=== PATIENT | female | born 2000 | race Caucasian/White ===

== ENCOUNTER → 2019-12-14 16:31 | Outpatient (BNVA) | payer BC, SELFPAY | PROVIDERS: Family Provider Family Medicine; Visit Provider Nurse Practitioner Women's Health | DX: Z01.419 Encounter for gynecological examination (general) (routine) without abnormal findings (principal); Z30.46 Encounter for surveillance of implantable subdermal contraceptive | CPT/HCPCS: 88175 ==

== ENCOUNTER → 2024-04-07 15:41 | Outpatient (BNVA) | payer OTHER, SELFPAY | PROVIDERS: Family Provider Family Medicine; Visit Provider Nurse Practitioner Women's Health | DX: Z12.4 Encounter for screening for malignant neoplasm of cervix (principal); N92.6 Irregular menstruation, unspecified | CPT/HCPCS: 81025; 87624 ==

== ENCOUNTER → 2024-05-04 14:27 | Outpatient (BNVA) | payer OTHER, SELFPAY | PROVIDERS: Family Provider Family Medicine; Visit Provider Nurse Practitioner Women's Health | DX: Z32.01 Encounter for pregnancy test, result positive (principal); N91.2 Amenorrhea, unspecified | CPT/HCPCS: 81025; 84702; 86850; 86900 ==

== ENCOUNTER → 2024-05-17 12:30 | Outpatient (BNVA) | payer OTHER, SELFPAY | PROVIDERS: Family Provider Family Medicine; Visit Provider Nurse Practitioner Women's Health | DX: Z36.87 Encounter for antenatal screening for uncertain dates (principal); Z3A.09 9 weeks gestation of pregnancy | CPT/HCPCS: 76801; 80307; 81000; 84443; 85025; 86592; 86762; 86803; 86850; 86900; 87086; 87340; 87806 ==

== ENCOUNTER → 2024-07-04 14:00 | Outpatient (BNVA) | payer OTHER, SELFPAY | PROVIDERS: Family Provider Family Medicine; Visit Provider Nurse Practitioner Women's Health | DX: Z34.01 Encounter for supervision of normal first pregnancy, first trimester (principal) | CPT/HCPCS: 82105; 84315; 87086 ==

== ENCOUNTER → 2024-08-01 14:38 | Outpatient (BNVA) | payer OTHER, SELFPAY | PROVIDERS: Family Provider Family Medicine; Visit Provider Obstetrics & Gynecology | DX: Z34.02 Encounter for supervision of normal first pregnancy, second trimester (principal); Z3A.20 20 weeks gestation of pregnancy | CPT/HCPCS: 76805 ==

== ENCOUNTER → 2024-08-09 14:36 | Outpatient (BNVA) | payer OTHER, SELFPAY | PROVIDERS: Family Provider Family Medicine; Visit Provider Obstetrics & Gynecology | DX: Z34.01 Encounter for supervision of normal first pregnancy, first trimester (principal) | CPT/HCPCS: 84315 ==

== ENCOUNTER → 2024-09-23 14:36 | Outpatient (BNVA) | payer OTHER, SELFPAY | PROVIDERS: Family Provider Family Medicine; Visit Provider Obstetrics & Gynecology | DX: Z34.90 Encounter for supervision of normal pregnancy, unspecified, unspecified trimester (principal) | CPT/HCPCS: 82950; 84315; 85025 ==

== ENCOUNTER → 2024-10-05 15:36 | Outpatient (BNVA) | payer OTHER, SELFPAY | PROVIDERS: Family Provider Family Medicine; Visit Provider Nurse Practitioner Women's Health | DX: O35.9XX0 Maternal care for (suspected) fetal abnormality and damage, unspecified, not applicable or unspecified (principal); Z3A.30 30 weeks gestation of pregnancy | CPT/HCPCS: 76816 ==

== ENCOUNTER → 2024-10-07 14:30 | Outpatient (BNVA) | payer OTHER, SELFPAY | PROVIDERS: Family Provider Family Medicine; Visit Provider Obstetrics & Gynecology | DX: Z34.93 Encounter for supervision of normal pregnancy, unspecified, third trimester (principal) | CPT/HCPCS: 84315 ==

== ENCOUNTER → 2024-10-21 14:55 | Outpatient (BNVA) | payer OTHER, SELFPAY | PROVIDERS: Family Provider Family Medicine; Visit Provider Obstetrics & Gynecology | DX: Z34.90 Encounter for supervision of normal pregnancy, unspecified, unspecified trimester (principal) | CPT/HCPCS: 84315 ==

== ENCOUNTER → 2024-11-03 14:15 | Outpatient (BNVA) | payer OTHER, SELFPAY | PROVIDERS: Family Provider Family Medicine; Visit Provider Nurse Practitioner Women's Health | DX: Z34.01 Encounter for supervision of normal first pregnancy, first trimester (principal) | CPT/HCPCS: 84315 ==

== ENCOUNTER → 2024-11-23 15:47 | Outpatient (BNVA) | payer OTHER, SELFPAY | PROVIDERS: Family Provider Family Medicine; Visit Provider Obstetrics & Gynecology | DX: Z34.80 Encounter for supervision of other normal pregnancy, unspecified trimester (principal) | CPT/HCPCS: 84315; 87081 ==

== ENCOUNTER → 2024-12-01 14:35 | Outpatient (BNVA) | payer OTHER, SELFPAY | PROVIDERS: Family Provider Family Medicine; Visit Provider Obstetrics & Gynecology | DX: Z34.90 Encounter for supervision of normal pregnancy, unspecified, unspecified trimester (principal) | CPT/HCPCS: 84315 ==

== ENCOUNTER → 2024-12-08 14:46 | Outpatient (BNVA) | payer OTHER, SELFPAY | PROVIDERS: Family Provider Family Medicine; Visit Provider Obstetrics & Gynecology | DX: Z34.01 Encounter for supervision of normal first pregnancy, first trimester (principal) | CPT/HCPCS: 84315 ==

== ENCOUNTER → 2024-12-15 14:30 | Outpatient (BNVA) | payer OTHER, SELFPAY | PROVIDERS: Family Provider Family Medicine; Visit Provider Obstetrics & Gynecology | DX: Z34.90 Encounter for supervision of normal pregnancy, unspecified, unspecified trimester (principal) | CPT/HCPCS: 84315 ==

== ENCOUNTER 2024-12-19 20:38 | Inpatient (IN) | payer OTHER, SELFPAY ==
[2024-12-19] VITALS (8 sets, daily range): BP systolic 103–131; BP diastolic 68–79; PULSE 76–110; BMI 30.2
--- NOTE | 2024-12-19 21:40 | P.HP_ITS ---
Providers/Chief Complaint 2 Admitting Physician: Wilver Lopez MD Primary SUPERVISOR BUILDING MAINTENANCE: Wilver Lopez MD Chief Complaint: IOL HPI SUPERVISOR BUILDING MAINTENANCE History of Present Illness Lex Casanova is a 24 year old female EDC December 15, 2024 At 40 w 4 d No complications Admitted for induction of labor No c/o + active movements Present Details : 1 Para: 0 Labs Rubella: Immune RPR: Negative GBS: Negative Medications/Allergies Home Medications ?Medication ?Instructions ?Recorded ?Confirmed ?Last Taken ?Type PNV 153-FA 400 mcg-om3 35 mg-dha 1 tab PO DAILY 12/19/24 12/18/24 History 25 mg-epa 5 mg-fish oil chew tablet ( Gummies) Allergies Allergy/AdvReac Type Severity Reaction Status Date / Time No Known Allergies Allergy Verified 12/15/24 14:37 PFSH SUPERVISOR BUILDING MAINTENANCE 2 PFSH: Medical History Encounter for contraceptive management Surgical History No pertinent past surgical history Family History Father Hypertension Denies family history of Colon cancer Ovarian cancer Dementia Heart disease Hyperlipidemia Breast cancer Family history of thyroid problem Uterine cancer Stroke Social History Smoking and tobacco/nicotine status: never used tobacco/nicotine Alcohol intake: never Substance/Drug Use: never History History History 2 1 Term 0 0 Miscarriages/Ectopic 0 Living Children 0 Care ADRIANA Calculator 2 Estimated Delivery Date Method Current WG Current Estimate 12/15/24 LMP (Certain) 40w 6d Other Estimates 12/18/24 Ultrasound #1 40w 3d Specific Issues/Plans * * UTI IN : augmentin sent for treatment of UTI, urine culture positive for e. coli, repeat culture ordered 07/04/24 negative Vitals/I&O/Wt Last Vital Signs Temp 96.6 F L 12/20/24 20:05 Pulse 80 12/21/24 08:54 BP 116/74 12/21/24 08:54 Pulse Ox 98 12/21/24 01:57 O2 Del Method Room Air 12/21/24 02:50 12/20/24 12/21/24 12/21/24 22:59 06:59 14:59 Intake Total 799.167 / 1380.150 534.25 / 1914.400 979.167 / 979.167 Output Total 300 / 300 Balance 799.167 / 1380.150 234.25 / 1614.400 979.167 / 979.167 Weight last 48 hrs Weight 176 lb Physical Exam 2 Narrative: Weight 176 lbs; 5?4? VS normal General comfortable, awake, alert Lungs: clear Cor RRR FH 38 cm, cephalic Cx closed / 25% / -3 / posterior / firm Ext: no edema External monitor: heart tracing good variability, + accelerations Urinary Catheter Management: Romero Latex: Cath Placed During This Visit: yes Reason for Continuing Indwelling Catheter: Other Urinary Catheter Date of Insertion: 12/21/24 Urinary Catheter Time of Insertion: 01:58 Data 12/19/24 21:00 Results Labs OB ([facility]): 2 Obstetrics US 10/05/24 Blood Type O Positive 12/19/24 Antibody Screen Negative 12/19/24 Hct, (36-47) 37.0 % 12/19/24 Hgb, (11.27-16.99) 12.90 g/dL 12/19/24 Rho(D) Type Rh positive 12/19/24 Plt Count, (157-399) 198 10^3/cmm 12/19/24 Hep Bs Antigen, (Nonreactive) Non-reactive 05/17/24 Hepatitis C Antibody, (Nonreactive) Non-reactive 05/03 12/24 Rubella IgG Antibody, (0.0-10.0) 153.5 IU/mL H 4 RPR, (Nonreactive) Nonreactive 05/17/24 HIV 1&2 Ab & HIV 1 Ag, (Non-Reactiv) Non-reactive TSH, (0.27-4.20) 0.61 uIU/mL 05/17/24 Glucose 1 Hr 50 gm, (85-140) 69 mg/dL L 09/23/24 Ser , Semi-Qnt 39335.00 mIU/mL 05/04/24 HCG, Qual, (Negative) Positive H 05/04/24 Urine Opiates Screen, (Negative) Negative ng/mL 4 Ur Barbiturates Screen, (Negative) Negative ng/mL 05/17 Ur Phencyclidine Scrn, (Negative) Negative ng/mL Ur Amphetamines Screen, (Negative) Negative ng/mL 05/17 U Benzodiazepines Scrn, (Negative) Negative ng/mL 05/17 Urine Cocaine Screen, (Negative) Negative ng/mL 4 U Marijuana (THC) Screen, (Negative) Negative ng/mL Micro Urine Specimen 07/04/24 Pap Smear Interpret See note 04/07/24 A&P Assessment and plan (1) Supervision of normal : 40 w 4 d Admit for labor induction Fetus reassuring GBS negative Plan Cytotec 25 ug intravaginal PDMP PDMP Reviewed: Not Reviewed Attestations 2 Medical Necessity Statement*: patient at 40 w 4 d, admitted for induction of labor Coding Level of Care Code Acute Code for Chg Fwd Diagnoses Encounter for supervision of normal first in first trimester Z34.01 Normal : normal first Trimester: first trimester
[2024-12-19 22:18] LABS: Basophils % 0.2 %; Eosinophils # 0.1 10^3/uL (0.0-0.8); Eosinophils % 0.9 %; Lymphocytes # 2.1 10^3/uL (0.8-4.8); Lymphocytes % 22.8 %; Mean Corpuscular HGB Conc 34.9 g/dL (30-55); Mean Corpuscular Hemoglobin 30.4 pg (27-33); Mean Corpuscular Volume 87.1 fl (85-98); Mean Platelet Volume 11.3 fL (7.4-10.4); Monocytes # 0.4 10^3/uL (0.2-0.9); Monocytes % 4.7 %; Neutrophils # 6.44 10^3/uL (1.8-7.7); Neutrophils % 71.1 %; Nucleated Red Blood Cells % 0 %; Platelet Count 198 10^3/cmm (157-399); Red Blood Count 4.25 10^6/uL (3.85-5.65); Red Cell Distribution Width 12.2 % (12.1-15.1); White Blood Count 9.07 10^3/uL (3.29-11.43)
[2024-12-19] MEDS: miSOPROStol 100 mcg tablet 25 MCG VAGINAL (22:38)
[2024-12-20] VITALS (25 sets, daily range): BP systolic 95–126; BP diastolic 55–88; PULSE 65–94; TEMP 35.6–36.1
[2024-12-20] MEDS: miSOPROStol 100 mcg tablet 25 MCG VAGINAL (04:31)
--- NOTE | 2024-12-20 09:05 | P.PN_ITS ---
FORGE PRESS OPERATOR Subjective 2 Subjective: Interval history: Fetus reassuring Mild uterine contractions Received Cytotec 25 ug intravaginal x two doses Cx: 2 / 75 / -3 Pitocin started per protocol Labor: Station: +1 Amniotic Membrane Status: Ruptured Monitor Mode: Palpation Contraction Pattern: Regular Uterine Tone Measurement: 30 Status: Category I Vitals/I&O/Wt Last Vital Signs Temp 96.6 F L 12/20/24 20:05 Pulse 80 12/21/24 08:54 BP 116/74 12/21/24 08:54 Pulse Ox 98 12/21/24 01:57 O2 Del Method Room Air 12/21/24 02:50 12/20/24 12/21/24 12/21/24 22:59 06:59 14:59 Intake Total 799.167 / 1380.150 534.25 / 1914.400 979.167 / 979.167 Output Total 300 / 300 Balance 799.167 / 1380.150 234.25 / 1614.400 979.167 / 979.167 Weight last 48 hrs Weight 176 lb Physical Exam 2 Urinary Catheter Management: Romero Latex: Cath Placed During This Visit: yes Reason for Continuing Indwelling Catheter: Other Urinary Catheter Date of Insertion: 12/21/24 Urinary Catheter Time of Insertion: 01:58 Data 12/19/24 21:00 A&P Assessment and plan (1) Supervision of normal : PDMP PDMP Reviewed: Not Reviewed Attestations 2 Medical Necessity Statement*: patient at 40 w 5 d, admitted for labor induction Coding Level of Care Code Acute Code for Chg Fwd Diagnoses Encounter for supervision of normal first in first trimester Z34.01 Normal : normal first Trimester: first trimester
[2024-12-20] MEDS: dextrose 5%-lactated ringers 1,000 ML 125 ML IV ×2 (09:15→13:39)
[2024-12-20] MEDS: oxytocin 30 UNIT/500 ML BAG IV (09:46)
[2024-12-20] MEDS: hyDROXYzine 25 mg Capsule 50 MG PO (11:01)
[2024-12-20] MEDS: acetaminophen 325 mg Tablet 650 MG PO (11:01)
--- NOTE | 2024-12-20 16:33 | ANES.PREANE2 ---
Pre-Anesthetic Assessment Height/Weight: Height 1.63 m Weight 79.832 kg Temp Pulse BP O2 Del Method 97.0 F L 87 123/88 Room Air 12/20/24 07:40 12/20/24 16:22 12/20/24 16:22 12/19/24 20:44 Preop Diagnosis: IUP epidural Familial anesthetic complications: none Was Beta Lucille taken within 24 hours: N/A Was Clonidine taken within 24 hours: N/A Last Intake: 07:30 Social No alcohol and No tobacco Exam alert and oriented x 3 Airway Submandibular: within normal limits Cervical ROM: within normal limits Mallampati: Class II Dentition: full History/ROS No significant complaints Anesthetic Plan ASA status: 2 Anesthesia: Anesthesia Evaluation and Regional (specify below) Risk of > 500 ml blood loss (7ml/kg in children): Yes, adequate IV access and fluids planned Medications/Allergies Home Medications ?Medication ?Instructions ?Recorded ?Confirmed ?Last Taken ?Type PNV 153-FA 400 mcg-om3 35 mg-dha 1 tab PO DAILY 05/31/24 12/19/24 12/18/24 History 25 mg-epa 5 mg-fish oil chew tablet ( Gummies) Allergies Allergy/AdvReac Type Severity Reaction Status Date / Time No Known Allergies Allergy Verified 12/15/24 14:37 Current Medications Generic Name Dose Route Start Last Admin Trade Name Freq PRN Reason Stop Dose Admin Acetaminophen 650 mg 12/19/24 22:06 12/20/24 11:01 Acetaminophen 325 Mg Tablet PO 650 mg Q6H PRN Administration Mild pain or temp > 100.4 Hydroxyzine Pamoate 50 mg 12/19/24 22:06 12/20/24 11:01 Hydroxyzine 25 Mg Capsule PO 50 mg QID PRN Administration sleep, agitation or itching Dextrose/Lactated Ringer's 1,000 mls @ 125 mls/hr 12/19/24 22:15 12/20/24 13:39 Dextrose 5%-Lactated Ringers IV 125 mls/hr .Q8H JULIANE Administration Oxytocin 30 unit in 500 mls @ 1 mls/hr 12/20/24 09:15 12/20/24 15:00 Pitocin IV 14 milliunit/min .Q24H JULIANE 14 mls/hr Protocol Titration 1 MILLIUNIT/MIN PFSH Anesthesia Medical History Encounter for contraceptive management Surgical History No pertinent past surgical history Family History Father Hypertension Denies family history of Colon cancer Ovarian cancer Dementia Heart disease Hyperlipidemia Breast cancer Family history of thyroid problem Uterine cancer Stroke Social History Smoking and tobacco/nicotine status: never used tobacco/nicotine Alcohol intake: never Substance/Drug Use: never Female Reproductive History : 1 Data Anesthesia 12/19/24 21:00 Short CBC 12/19/24 Range/Units 21:00 WBC 9.07 (3.29-11.43) 10^3/uL Hgb 12.90 (11.27-16.99) g/dL Hct 37.0 (36-47) % MCV 87.1 (85-98) fl Plt Count 198 (157-399) 10^3/cmm Neut % (Auto) 71.1 % Neut # (Auto) 6.44 (1.8-7.7) 10^3/uL Blood Bank 12/19/24 21:00 Blood Type O Positive Rho(D) Type Rh positive Antibody Screen Negative
--- NOTE | 2024-12-20 23:50 | P.PN_ITS ---
CARBON SEQUESTRATION PLANT OPERATOR Subjective 2 Subjective: Interval history: Fetus reassuring Comfortable with epidural Cervix: 4 cm / 90 / -2 / posterior AROM, 3+ meconium IUPC placed Labor: Station: +1 Amniotic Membrane Status: Ruptured Monitor Mode: Palpation Contraction Pattern: Regular Uterine Tone Measurement: 30 Status: Category I Vitals/I&O/Wt Last Vital Signs Temp 96.6 F L 12/20/24 20:05 Pulse 76 12/21/24 09:14 BP 116/69 12/21/24 09:14 Pulse Ox 98 12/21/24 01:57 O2 Del Method Room Air 12/21/24 02:50 12/20/24 12/21/24 12/21/24 22:59 06:59 14:59 Intake Total 799.167 / 1380.150 534.25 / 1914.400 979.167 / 979.167 Output Total 300 / 300 Balance 799.167 / 1380.150 234.25 / 1614.400 979.167 / 979.167 Weight last 48 hrs Weight 176 lb Physical Exam 2 Urinary Catheter Management: Romero Latex: Cath Placed During This Visit: yes Reason for Continuing Indwelling Catheter: Other Urinary Catheter Date of Insertion: 12/21/24 Urinary Catheter Time of Insertion: 01:58 Data 12/19/24 21:00 A&P Assessment and plan (1) Supervision of normal : PDMP PDMP Reviewed: Not Reviewed Attestations 2 Medical Necessity Statement*: patient at 40 w 5 d, admitted for induction of labor Coding Level of Care Code Acute Code for Chg Fwd Diagnoses Encounter for supervision of normal first in first trimester Z34.01 Normal : normal first Trimester: first trimester
[2024-12-21] VITALS (61 sets, daily range): BP systolic 95–145; BP diastolic 52–86; PULSE 61–122; RESP 15–18; TEMP 36.6–38.2; O2SAT 84–100
[2024-12-21] MEDS: lactated ringers 1,000 ML 999 ML IV (00:05)
[2024-12-21] MEDS: dextrose 5%-lactated ringers 1,000 ML 125 ML IV ×2 (01:05→08:55)
[2024-12-21] MEDS: ROPivacaine syringe 100 MG/50 ML SYRINGE 10 MG EPIDURAL ×2 (01:18→09:00)
--- NOTE | 2024-12-21 01:18 | ANES.PROC ---
Anesthesia Procedures Procedure/Date: 12/21/24 Epidural: Time Out Performed: Yes Consents Signed: Procedure Consent Consent: from patient, risks and benefits reviewed and patient agrees to proceed Lumbar Level: L3-L4 Epidural position: sitting Epidural procedure: sterile prep of area, 1% lidocaine to numb the area, 18 g needle, negative for paresthesia passed, test dose given, 1.5% xylocaine 1:200k epi, placed PCEA, no systemic response, sterile dressing applied, L.U.D. no apparent complications and 0.2% Ropiavacaine @ mls/hr (10) Additional Comments: NATHALIA at 4, negative heme/CSF with aspiration. taped at 12 at skin. tolerated well.
--- NOTE | 2024-12-21 11:50 | P.PN_ITS ---
ACCOUNT SERVICES SPECIALIST Subjective 2 Subjective: Interval history: Patient has been complete, pushing x two hours with good efforts Fetus reassuring head occiput transverse, + 2 station Vacuum extractor applied Traction applied through 5 uterine contractions with no descent of head No descent even with midline episiotomy This most likely represent deep transverse arrest Recommend proceeding to for delivery Explained to patient above Explained procedure and risks Risks include, but not limited to, infection, bleeding, injury to internal organs, anesthesia, Blood transfusions Patient understands and wants to proceed Plan and repair of midline episiotomy Labor: Station: +1 Amniotic Membrane Status: Ruptured Monitor Mode: Palpation Contraction Pattern: Regular Uterine Tone Measurement: 30 Status: Category I Vitals/I&O/Wt Last Vital Signs Temp 96.6 F L 12/20/24 20:05 Pulse 86 12/21/24 16:59 BP 120/77 12/21/24 16:59 Pulse Ox 98 12/21/24 01:57 O2 Del Method Room Air 12/21/24 02:50 12/21/24 12/21/24 12/21/24 06:59 14:59 22:59 Intake Total 534.25 / 1914.400 979.167 / 979.167 Output Total 300 / 300 Balance 234.25 / 1614.400 979.167 / 979.167 Weight last 48 hrs Weight 176 lb Physical Exam 2 Urinary Catheter Management: Romero Latex: Cath Placed During This Visit: yes Reason for Continuing Indwelling Catheter: Other Urinary Catheter Date of Insertion: 12/21/24 Urinary Catheter Time of Insertion: 01:58 Data 12/19/24 21:00 A&P Assessment and plan (1) Supervision of normal : PDMP PDMP Reviewed: Not Reviewed Attestations 2 Medical Necessity Statement*: patient at 40 w 5 d, admitted for induction of labor Coding Level of Care Code Acute Code for Chg Fwd Diagnoses Encounter for supervision of normal first in first trimester Z34.01 Normal : normal first Trimester: first trimester
[2024-12-21] MEDS: ondansetron 2 mg/ML SDV 2 mL 4 MG IVP (12:21)
[2024-12-21] MEDS: ceFAZolin 2,000 mg SDV 2000 MG IVP (12:50)
--- NOTE | 2024-12-21 13:31 | P.ANESUD_ITS ---
Pre-Anesthetic Update Pre-Anesthetic Assessment: Date of Surgery/Procedure: 12/21/24 Preop Tammie gnosis: IUP Changes from Pre-Anesthetic Assessment: I was called and notified that patient needs urgent for station of labor. Patient pushed for 3 hours without success. Patient is nauseous and has reportedly threw up a few minutes prior to my arrival Vital stable currently. States that epidural has been working. Plan for with epidural. Patient notified that we may possibly have to go to sleep if epidural does not set up for her. Labs Last 48hrs: Short CBC 12/19/24 Range/Units 21:00 WBC 9.07 (3.29-11.43) 10^ 3/uL Hgb 12.90 (11.27-16.99) g/ dL Hct 37.0 (36-47) % MCV 87.1 (85-98) fl Plt Count 198 (157-399) 10^3/c mm Neut % (Auto) 71.1 % Neut # (Auto) 6.44 (1.8-7.7) 10^3/u L Blood Bank 12/19/24 21:00 Blood Type O Positive Rho(D) Type Rh positive Antibody Screen Negative Vitals: Temperature 96.6 F L 12/20/24 20:05 Pulse Rate 88 12/21/24 12:34 Respiratory Effort Spontaneous, Non- Labored 12/19/24 20:44 Respiratory Depth Normal 12/19/24 20:44 Respiratory Patter n Normal 12/19/24 20:44 Blood Pressure 122/79 12/21/24 12:34 Pulse Oximetry 98 12/21/24 01:57 Oxygen Delivery Me thod Room Air 12/21/24 02:50
--- NOTE | 2024-12-21 14:10 | P.OP_ITS ---
Operative Report Date of procedure: December 21, 2024 Pre-op diagnosis: 40 w 5 d induction of labor 3+ meconium-stained amniotic fluid patient complete, pushing x two hours head occiput transverse, + 2 station failed vacuum extraction midline episiotomy Post-op diagnosis: same Procedure done: primary low-transverse repair of midline episiotomy, no extensions Implants: none Specimens removed/disposition: placenta and cord, discarded cord gases and blood, sent to lab Surgeon: Wilver Lopez MD Anesthesia: General Estimated blood loss (mL): 500 Complications: none Condition: stable Disposition: floor Brief History: 24 y.o. at 40 w 5 d admitted for induction of labor Cx progressed to complete head at +2 station Patient had good pushing efforts x two hours Failed attempts at vacuum extraction head with occiput transverse presentation Midline episiotomy Procedure: The patient was taken to the operating room and placed supine in the left lateral tilt position. Epidural anesthesia and a mccain catheter were already in place. Time-out verification was carried Out. The abdomen was prepped and draped in the usual sterile fashion. Epidural was found to be not effective in providing adequate anesthesia. General endotracheal anesthesia was performed. A Pfannenstiel incision was made and carried down through skin and subcutaneous tissue and fascia. The fascial incision was extended laterally with Villalba scissors. The fascia was from the underlying rectus muscles. The rectus muscles were split in the midline. The peritoneum was entered bluntly avoiding underlying organs. A bladder flap was created. A low-transverse uterine incision was made and extended laterally and bluntly avoiding the uterine vessels. 3+ meconium-stained amniotic fluid was encountered. The baby was delivered in cephalic presentation atraumatically. Tight body cord x one noted and reduced. The baby was suctioned, the cord was clamped and cut and the baby was handed to pediatric staff. A segment of cord was obtained for cord gas, cord blood was obtained. The placenta was manually removed intact. The uterine cavity was bluntly curetted with wet laps. The uterine incision was then closed with a continuous interlocking stitch of O- chromic. Adequate hemostasis was seen. Inspection of the uterine incision again showed good hemostasis. The fascia was then closed with a continuous stitch of O-Vicryl. Additional interrupted stitches of O-Vicryl were used for fascial closure. The subcutaneous tissue was irrigated and inspected for hemostasis. The skin was then closed with Insorb brenda. The patient was placed in dorsolithotomy position. Midline episiotomy was repaired in layers with 2-O chromic. Patient was then placed supine, awakened. Postoperative condition: stable EBL: 500 cc Complications: none Sponge and instruments counts correct x two
--- NOTE | 2024-12-21 14:31 | ANE.PACU2 ---
Inpatient post-anesthesia follow up: Airway intact: Yes Vital signs: Temperature 97.0 F Pulse Rate 98 Respiratory Rate 17 Blood Pressure 104/70 Pulse Oximetry 99 Oxygen Delivery Me thod Room Air Oxygen Flow Rate Fraction of Inspir ed Oxygen Hydration adequate: Yes Nausea and vomiting: No Pain level: 1 Mental status: Baseline
--- NOTE | 2024-12-21 19:07 | PC.NURSE ---
Patient stated she felt warm. Axillary temperature 100.8. Nurse removed 8 blankets from patient.
[2024-12-21] MEDS: ketorolac 30 mg/mL INJ IVP (20:27)
[2024-12-22 02:06] VITALS: BP 104/59; PULSE 92; TEMP 36.1
[2024-12-22] MEDS: ketorolac 30 mg/mL INJ IVP (02:31)
[2024-12-22 05:35] VITALS: BP 99/54; PULSE 90
[2024-12-22 06:51] LABS: Hematocrit 29.5 % (36-47); Mean Corpuscular HGB Conc 34.6 g/dL (30-55); Mean Corpuscular Hemoglobin 31.6 pg (27-33); Mean Corpuscular Volume 91.3 fl (85-98); Mean Platelet Volume 11.6 fL (7.4-10.4); Platelet Count 160 10^3/cmm (157-399); Red Blood Count 3.23 10^6/uL (3.85-5.65); Red Cell Distribution Width 12.3 % (12.1-15.1); White Blood Count 14.06 10^3/uL (3.29-11.43)
[2024-12-22 11:02] VITALS: BP 104/70; PULSE 98
[2024-12-22] MEDS: ibuprofen 800 mg tablet PO ×3 (11:08→21:13)
[2024-12-22] MEDS: HYDROcodone-acetaminophen 5-325 mg Tablet PO ×2 (11:08→16:04)
[2024-12-22] MEDS: PRENATAL VIT NO.130/IRON/FOLIC 1 EACH TABLET PO (11:08)
[2024-12-22] MEDS: docusate sodium 100 mg Capsule PO ×2 (11:08→21:13)
[2024-12-22 16:06] VITALS: BP 97/59; PULSE 83
[2024-12-22 21:14] VITALS: BP 117/67; PULSE 87
[2024-12-23 04:36] VITALS: BP 132/80; PULSE 97
[2024-12-23] MEDS: HYDROcodone-acetaminophen 5-325 mg Tablet PO ×2 (04:37→18:30)
--- NOTE | 2024-12-23 09:12 | PC.NURSE ---
This nurse went into pt room at 0750, pt was sitting in bed shaking uncontrollably and reporting severe pain, pt reports voiding in small amounts but still had the urge to void. This nurse went to the charge nurse to help catheterize the pt. This nurse and Jane RN catheterized pt @ 0810 with an 8 fr catheter and got 1850 mL in urine. Pt reports feeling much better. This nurse educated pt on measuring voids from this point on. This nurse left room at 0850 and called at 0906 to report the amount of urine retention and the amount of urine in return, orders to measure voids.
[2024-12-23] MEDS: PRENATAL VIT NO.130/IRON/FOLIC 1 EACH TABLET PO (10:00)
[2024-12-23] MEDS: docusate sodium 100 mg Capsule PO (10:00)
[2024-12-23] MEDS: ibuprofen 800 mg tablet PO ×2 (10:00→17:10)
[2024-12-23 17:04] VITALS: BP 130/80; PULSE 113
[2024-12-23] MEDS: acetaminophen 325 mg Tablet 650 MG PO (17:53)
--- NOTE | 2024-12-23 18:24 | PM.OBGYDC ---
Discharge Providers SENIOR MATERIALS SCIENTIST Date of Admission: 12/19/24 20:38 Date of Discharge: 12/23/24 Attending Provider at Admission: Wilver Lopez MD Attending Provider at Discharge: Wilver Lopez MD Diagnoses at Discharge Discharge Diagnosis (1) Supervision of normal : Details from hospital stay: 24-year-old female G1, P1 s/p primary section postop day 2. Patient was initially admitted for induction of labor, patient progressed to complete dilatation and after trial of instrumented assisted vaginal delivery which failed patient was consented and taken back to the OR for delivery. Patient's postoperative course day 2 was complicated by urinary retention. Straight cath of her bladder resulted in 1800 cc of urine. Patient was then encouraged to timely void hourly and nursing staff measured output. After several hours and monitoring urine output throughout the day patient voided without difficulty. She denies any painful urination or blood in her stream. Patient has been counseled on postoperative as well as discharge expectations to include no heavy lifting pushing or pulling no sex douching or tampons x 6 weeks. Patient is to shower daily keeping incision clean and dry. VSS, afebrile Status: Acute Qualifiers: Normal : normal first Trimester: first trimester Qualified Code(s): Z34.01 - Encounter for supervision of normal first , first trimester Reason for Visit Reason for Visit: IOL Hospital Course Hospital Course See above note under hospital stay. Information Peripartum Data: Infant Delivery Method: Laceration description: Perineal - 2nd Degree Episiotomy description: Midline complications: other Physical Exam Back/Pelvis: OTHER: Abdomen?soft, incision clean dry and intact. Fundus below umbilicus. Lochia?rubra light. Extremity: COMMON NORMALS: normal to inspection, no clubbing, cyanosis or edema and no calf tenderness Urinary Catheter Management: Romero Latex: Cath Placed During This Visit: yes, but has since been removed by the nurse Reason for Continuing Indwelling Catheter: Decision to DC Catheter Urinary Catheter Date of Insertion: 12/21/24 Urinary Catheter Time of Insertion: 01:58 Date Urinary Catheter Removed: 12/22/24 Time Urinary Catheter Discontinued: 00:04 History History History 1 Term 1 0 Miscarriages/Ectopic 0 Living Children 1 Discharge Data Studies Completed and Pending Laboratory Results WBC 14.06 10^3/uL (3.29-11.43) H 12/22/24 05:18 RBC 3.23 10^6/uL (3.85-5.65) L 12/22/24 05:18 Hgb 10.20 g/dL (11.27-16.99) L 12/22/24 05:18 Hct 29.5 % (36-47) L 12/22/24 05:18 MCV 91.3 fl (85-98) 12/22/24 05:18 MCH 31.6 pg (27-33) 12/22/24 05:18 MCHC 34.6 g/dL (30-55) 12/22/24 05:18 RDW 12.3 % (12.1-15.1) 12/22/24 05:18 Plt Count 160 10^3/cmm (157-399) 12/22/24 05:18 MPV 11.6 fL (7.4-10.4) H 12/22/24 05:18 Neut % (Auto) 71.1 % 12/19/24 21:00 Lymph % (Auto) 22.8 % 12/19/24 21:00 [place] % (Auto) 4.7 % 12/19/24 21:00 Eos % (Auto) 0.9 % 12/19/24 21:00 Baso % (Auto) 0.2 % 12/19/24 21:00 Neut # (Auto) 6.44 10^3/uL (1.8-7.7) 12/19/24 21:00 Lymph # (Auto) 2.1 10^3/uL (0.8-4.8) 12/19/24 21:00 [place] # (Auto) 0.4 10^3/uL (0.2-0.9) 12/19/24 21:00 Eos # (Auto) 0.1 10^3/uL (0.0-0.8) 12/19/24 21:00 Baso # (Auto) 0.0 10^3/uL (0.0-0.1) 12/19/24 21:00 Nucleated RBC % (auto) 0 % 12/19/24 21:00 Nucleated RBCs # 0.0 /100WBC 12/19/24 21:00 Blood Type O Positive 12/19/24 21:00 Rho(D) Type Rh positive 12/19/24 21:00 Antibody Screen Negative 12/19/24 21:00 Vitals Last Vital Signs Temp 97.0 F L 12/22/24 02:06 Pulse 113 H 12/23/24 17:04 Resp 17 12/21/24 18:09 BP 130/80 12/23/24 17:04 Pulse Ox 99 12/21/24 14:50 O2 Del Method Room Air 12/21/24 14:50 Results Labs OB ([facility]): Obstetrics US 10/05/24 Blood Type O Positive 12/19/24 Antibody Screen Negative 12/19/24 Hct, (36-47) 29.5 % L 12/22/24 Hgb, (11.27-16.99) 10.20 g/dL L 12/22/24 Rho(D) Type Rh positive 12/19/24 Plt Count, (157-399) 160 10^3/cmm 12/22/24 Hep Bs Antigen, (Nonreactive) Non-reactive 05/17/24 Hepatitis C Antibody, (Nonreactive) Non-reactive 05/17/24 Rubella IgG Antibody, (0.0-10.0) 153.5 IU/mL H 05/17/24 RPR, (Nonreactive) Nonreactive 05/17/24 HIV 1&2 Ab & HIV 1 Ag, (Non-Reactiv) Non-reactive 05/17/24 TSH, (0.27-4.20) 0.61 uIU/mL 05/17/24 Glucose 1 Hr 50 gm, (85-140) 69 mg/dL L 09/23/24 Ser , Semi-Qnt 62775.00 mIU/mL 05/04/24 HCG, Qual, (Negative) Positive H 05/04/24 Urine Opiates Screen, (Negative) Negative ng/mL 05/17/24 Ur Barbiturates Screen, (Negative) Negative ng/mL 05/17/24 Ur Phencyclidine Scrn, (Negative) Negative ng/mL 05/17/24 Ur Amphetamines Screen, (Negative) Negative ng/mL 05/17/24 U Benzodiazepines Scrn, (Negative) Negative ng/mL 05/17/24 Urine Cocaine Screen, (Negative) Negative ng/mL 05/17/24 U Marijuana (THC) Screen, (Negative) Negative ng/mL 05/17/24 Micro Urine Specimen 07/04/24 Pap Smear Interpret See note 04/07/24 Discharge Plan Discharge Patient Disposition: Home Condition: Stable Prescriptions: Continued Gummies 400 mcg-35 mg- 25 mg-5 mg tablet,chewable 1 tab PO DAILY Discharge Orders: Discharge Order (Routine); Ordered 12/23/24 Ordered By: Lashonda Giron Referrals: Shelley Baldwin NP [Nurse Practitioner, SENIOR MATERIALS SCIENTIST] - 01/04/25 8:45 am Referral Note: 6 week postop scheduled 02/02/25 @ 11:00 A.M Discharge Diet: Regular Discharge Activity: Increase activity as tolerated Patient Instructions: Depression (DC), Opioid Safety (DC), Preeclampsia and Eclampsia After Delivery (GEN), Hemorrhage (DC), OB [facility], OB Discharge Report, OB Food/Drug Interaction Guide, OB Care at Home, Opioid Safety, Abnormal Bleeding Activity Restrictions/Additional Instructions: No heavy lifting pushing or pulling. No sexual intercourse x 6 weeks. Patient given instructions on showering daily keeping incision clean and dry. Assessment: 1. S/p primary low-transverse section 2. S/p induction of labor with failed instrument assisted vaginal delivery 3. Urinary retention?resolved 4. Asymptomatic anemia Plan of Treatment: Discharge patient to home Postop follow-[facility]. Discharge Attestations SENIOR MATERIALS SCIENTIST Time Spent in Discharge Care*: less than 30 min Coding Level of Care Code Acute Code for Chg Fwd Diagnoses Encounter for supervision of normal first in first trimester Z34.01 Normal : normal first Trimester: first trimester
[2024-12-23 18:31] VITALS: BP 118/79; PULSE 87
[2024-12-23 19:00] VITALS: BP 118/79; PULSE 87; RESP 16; TEMP 36.7; O2SAT 98
== END 2024-12-23 19:00 | disposition home or self-care (01) | DRG 788 ==
LOC: OPOB 20:38 → OBGYN 20:38
PROVIDERS: Admitting Provider Obstetrics & Gynecology; Family Provider Family Medicine; Visit Provider Obstetrics & Gynecology
PROC: 10D00Z1 Extraction of Products of Conception, Low, Open Approach (ICD-10-PCS; CPT 59514; principal; 2024-12-21 12:30)
DX: O48.0 Post-term pregnancy (principal); Z3A.40 40 weeks gestation of pregnancy; Z37.0 Single live birth; O77.0 Labor and delivery complicated by meconium in amniotic fluid; O69.1XX0 Labor and delivery complicated by cord around neck, with compression, not applicable or unspecified; O66.5 Attempted application of vacuum extractor and forceps
CPT/HCPCS: 36415; 51702; 59025; 59409; 85025; 85027; 86850; 86900; 96374; 96376; J0690; J1100; J1885; J2274; J2371; J2405; J2590; J2795; J3010; J7030; J7120; J7121; J9999

== ENCOUNTER → 2025-02-02 11:43 | Outpatient (BNVA) | payer OTHER, SELFPAY | PROVIDERS: Family Provider Family Medicine; Visit Provider Obstetrics & Gynecology | DX: Z30.9 Encounter for contraceptive management, unspecified (principal) | CPT/HCPCS: 81025 ==